=== PATIENT | female | born 1975 | race Caucasian/White ===

== ENCOUNTER → 2019-12-29 08:20 | Outpatient (BNVA) | payer BC, SELFPAY | PROVIDERS: Family Provider Family Medicine; PCP Nurse Practitioner; Visit Provider Nurse Practitioner | DX: Z00.00 Encounter for general adult medical examination without abnormal findings (principal); F41.9 Anxiety disorder, unspecified | CPT/HCPCS: 80053; 80061; 84443; 85007; 85027 ==

== ENCOUNTER 2020-04-01 10:35 | Outpatient (CLI) | payer BC, SELFPAY ==
--- NOTE | 2020-04-01 10:45 | MM_ITS ---
WS: [id number] BILATERAL DIGITAL SCREENING MAMMOGRAPHY WITH CAD CLINICAL INFORMATION: SCREENING HISTORY: Screening mammogram. Bilateral breast soreness. COMPARISON: November 26, 2013 TECHNIQUE: Bilateral CC and MLO views. FINDINGS: The breasts are composed of heterogeneous fibroglandular density tissue, which can limit the detectio n of small underlying mass lesions. Nodular heterogeneous breast tissue unchanged. No suspicious mass , asymmetry, calcifications, or architectural distortion. No evidence of malignancy. MM/[place] [id number] IMPRESSION: BI-RADS: 2-Benign FOLLOW UP: 1 Year Follow-up Recommend return to annual screening mammography.
== END 2020-04-01 10:36 | disposition home or self-care (01) ==
LOC: RADSHAW 10:41
PROVIDERS: PCP Nurse Practitioner; Visit Provider Nurse Practitioner
DX: Z12.31 Encounter for screening mammogram for malignant neoplasm of breast (principal)
CPT/HCPCS: 77067

== ENCOUNTER → 2020-06-03 08:33 | Outpatient (BNVA) | payer BC, SELFPAY | PROVIDERS: PCP Family Medicine; Visit Provider Family Medicine | DX: E78.00 Pure hypercholesterolemia, unspecified (principal) | CPT/HCPCS: 80053; 80061 ==

== ENCOUNTER → 2020-10-25 15:45 | Outpatient (BNVA) | payer BC, SELFPAY | PROVIDERS: PCP Family Medicine; Visit Provider Family Medicine | DX: M54.5 Low back pain (principal); G89.29 Other chronic pain; M79.641 Pain in right hand; M79.642 Pain in left hand | CPT/HCPCS: 80053; 85025; 85651; 86038; 86140; 86431 ==

== ENCOUNTER 2021-02-08 08:07 | Outpatient (CLI) | payer BC, SELFPAY ==
--- NOTE | 2021-02-08 | XR_ITS ---
WS: [id number] LATERAL LUMBAR SPINE: 3 view. Lateral radiographs are performed in upright neutral, flexion and extension to the patient's toleranc e. HISTORY: LUMBAR SPINE PAIN COMPARISON: 09/16/2018 Very slight increase in lumbar lordosis. No fracture or malalignment. With flexion and extension ther e is no instability. XR/XR lumbar spine f/e only [id number] IMPRESSION: No lumbar spine instability.
--- NOTE | 2021-02-08 08:24 | XR_ITS ---
WS: [id number] LATERAL CERVICAL SPINE: 3 view. Lateral radiographs are performed in upright neutral, flexion and extension to the patient's toleranc e. HISTORY: PAIN COMPARISON: 09/14/2014 Mild straightening of the normal cervical lordosis. Less than 2 mm anterolisthesis of C3 and C4. Mild spondylitic changes at C5-6. No fractures. With flexion and extension the alignment remains normal. 2 mm anterolisthesis of C3 and C4 during flexion and returns to normal alignment during extension. XR/XR cervical spine fl/ex [id number] IMPRESSION: 1. Very minimal anterolisthesis of C3 and C4. No significant instability. 2. Mild spondylitic changes at C5-6.
--- NOTE | 2021-02-08 08:24 | MR_ITS ---
WS: [id number] MRI CERVICAL SPINE NONCONTRAST HISTORY: CERVICAL SPINE PAIN COMPARISON: 05/28/2012 Technique: Multiplanar, multisequence noncontrast imaging of the cervical spine. Mild straightening of the normal cervical lordosis. No retrolisthesis or anterolisthesis. Signal within the cervical cord is normal. Visualized posterior fossa is unremarkable. Craniocervical junction, C1 and C2 relationship, odontoid process and soft tissues are normal. C2-C3: Normal. C3-C4: Very mild annular disc bulging. C4-C5: Very mild annular disc bulging and small osteophytes without stenosis. C5-C6: Mild annular disc bulging with a central disc protrusion. Disc protrusion contacts but does no t displace the ventral cervical cord. This is probably a disc osteophyte with minimal progression sin ce the prior study. Disc osteophyte contacts and extends into the foramen bilaterally. Mild central a nd bilateral foraminal stenosis. C6-C7: Very mild annular disc bulging with a LEFT paracentral disc osteophyte with contact on the magaly tral thecal sac. No significant stenosis. There is mild increase in size of the disc osteophyte compl ex since the prior study. Mild central and foraminal stenosis. C7-T1: Normal. 5 mm RIGHT thyroid nodule. MR/MR cervical spin wo con* [id number] IMPRESSION: 1. Mild central and bilateral foraminal stenosis at C5-6 with mild progression since 2011. 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 2. Moderate LEFT paracentral disc osteophyte at C6-7 with mild bilateral nisha inal disc osteophyte complexes resulting in only mild central and foraminal karen rowing. Minimal progression of disc osteophyte disease.
--- NOTE | 2021-02-08 08:24 | MR_ITS ---
WS: [id number] MRI LUMBAR SPINE NONCONTRAST HISTORY: LUMBAR BACK PAIN COMPARISON: 09/16/2018 TECHNIQUE: Sagittal and axial multisequence imaging is submitted. Small disc protrusion at T7-8 without cord contact. Disc appears to be slightly to the LEFT of midlin e. Normal lumbar alignment with no compression fractures or marrow edema. No fractures or marrow edema. Very mild disc desiccation at L5-S1 without disc narrowing. Conus terminates normally at L1-2 disc level. L1-L2: Normal. L2-L3: Normal. L3-L4: Normal. L4-L5: Mild annular disc bulging with facet arthritis. L5-S1: Mild central disc protrusion with annular fissure is similar to the prior study. There is mild contact upon the S1 nerve roots bilaterally but no displacement or progression since the prior study . MR/MR lumbar spine wo con* [id number] IMPRESSION: 1. Shallow central disc protrusion with annular fissure at L5-S1. Very minimal contact without displacement on the S1 nerve roots bilaterally. Similar to the prior study. 2. Minimal disc desiccation at L5-S1, unchanged. 3. No fractures or significant stenosis.
== END 2021-02-08 08:08 | disposition home or self-care (01) ==
PROVIDERS: PCP Family Medicine; Visit Provider Anesthesiology Pain Medicine
DX: M47.22 Other spondylosis with radiculopathy, cervical region (principal); M47.26 Other spondylosis with radiculopathy, lumbar region; M51.27 Other intervertebral disc displacement, lumbosacral region; M48.02 Spinal stenosis, cervical region; M25.78 Osteophyte, vertebrae
CPT/HCPCS: 72040; 72120; 72141; 72148

== ENCOUNTER → 2021-04-26 08:07 | Outpatient (BNVA) | payer BC, SELFPAY | PROVIDERS: PCP Family Medicine; Referring Provider Family Medicine; Visit Provider Family Medicine | DX: E78.00 Pure hypercholesterolemia, unspecified (principal); Z13.6 Encounter for screening for cardiovascular disorders | CPT/HCPCS: 80053; 80061; 84443; 85007; 85027 ==

== ENCOUNTER → 2021-11-13 16:01 | Outpatient (BNVA) | payer BC, SELFPAY | PROVIDERS: PCP Family Medicine; Visit Provider Family Medicine | DX: E78.00 Pure hypercholesterolemia, unspecified (principal) | CPT/HCPCS: 80053 ==

== ENCOUNTER 2021-11-15 14:26 | Outpatient (CLI) | payer BC, SELFPAY ==
--- NOTE | 2021-11-15 15:00 | MM_ITS ---
WS: [id number] BILATERAL DIGITAL SCREENING MAMMOGRAPHY WITH CAD CLINICAL INFORMATION: screening mammogram HISTORY: Screening mammogram. No current complaints. COMPARISON: April 01, 2020 TECHNIQUE: Bilateral CC and MLO views. FINDINGS: The breasts are composed of heterogeneous fibroglandular density tissue, which can limit the detectio n of small underlying mass lesions. Punctate calcifications upper quadrant left breast similar in deena earance but appear increased in number compared to April 01, 2020. Recommend spot magnification views in further evaluation. Right breast is unremarkable and unchanged. MM/[place] [id number] IMPRESSION: BI-RADS: 0-Incomplete: Need additional imaging evaluation FOLLOW UP: Need Additional Imaging Recommend LEFT breast diagnostic mammography with spot magnification views of t he calcifications.
== END 2021-11-15 14:27 | disposition home or self-care (01) ==
LOC: RADSHAW 14:31
PROVIDERS: PCP Family Medicine; Visit Provider Family Medicine
DX: Z12.31 Encounter for screening mammogram for malignant neoplasm of breast (principal)
CPT/HCPCS: 77067

== ENCOUNTER 2022-01-02 07:55 | Outpatient (CLI) | payer BC, SELFPAY ==
--- NOTE | 2022-01-02 08:08 | MM_ITS ---
WS: [id number] LEFT 3D TOMOSYNTHESIS DIGITAL MAMMOGRAPHY WITH CAD CLINICAL INFORMATION: Abnormal mammogram Spot identification views of calcifications COMPARISON: November 15, 2021 TECHNIQUE: 5 views of the left breast were obtained. FINDINGS: The left breast is composed of heterogeneous fibroglandular density tissue, which can limit the detec tion of small underlying mass lesions. Again seen are the punctate calcifications upper quadrant LEFT breast these are amorphous and punctate appearance. These are probably benign and recommend 6 month follow-up spot magnification views. MM/[place] [id number] IMPRESSION: BI-RADS: 3-Probably Benign FOLLOW UP: 6 Month Follow-up Recommend 6 month follow-up Spot magnification views LEFT breast calcifications
== END 2022-01-02 07:56 | disposition home or self-care (01) ==
PROVIDERS: PCP Family Medicine; Visit Provider Family Medicine
DX: R92.8 Other abnormal and inconclusive findings on diagnostic imaging of breast (principal); R92.1 Mammographic calcification found on diagnostic imaging of breast
CPT/HCPCS: 77061

== ENCOUNTER → 2022-05-18 10:38 | Outpatient (BNVA) | payer BC, SELFPAY | PROVIDERS: PCP Family Medicine; Visit Provider Family Medicine | DX: E78.00 Pure hypercholesterolemia, unspecified (principal) | CPT/HCPCS: 80053; 80061; 85025 ==

== ENCOUNTER → 2022-06-21 15:54 | Outpatient (BNVA) | payer BC, SELFPAY | PROVIDERS: PCP Family Medicine; Visit Provider Family Medicine | DX: R60.0 Localized edema (principal); R73.9 Hyperglycemia, unspecified | CPT/HCPCS: 80048; 83036 ==

== ENCOUNTER 2023-01-01 13:05 | Outpatient (CLI) | payer BC, SELFPAY ==
--- NOTE | 2023-01-01 13:16 | MM_ITS ---
WS: [id number] BILATERAL 3D TOMOSYNTHESIS DIGITAL DIAGNOSTIC MAMMOGRAPHY WITH CAD CLINICAL INFORMATION: abnormal mammo HISTORY: COMPARISON: 2021 TECHNIQUE: Bilateral CC, MLO, and ML views. FINDINGS: The breasts are composed of heterogeneous fibroglandular density, which can limit the detection of sm all underlying mass lesions. Again seen are the punctate and amorphous calcifications upper quadrant LEFT breast similar to previous. No progressed calcifications. No other suspicious findings. Parenchymal density is unchanged. MM/[place] [id number] IMPRESSION: BI-RADS: 3-Probably Benign FOLLOW UP: 6 Month Follow-up Recommend additional six-month follow-up LEFT breast diagnostic mammography wit h spot magnification views of the calcifications to confirm 18-24 month stabili ty
== END 2023-01-01 13:06 | disposition home or self-care (01) ==
PROVIDERS: PCP Family Medicine; Visit Provider Family Medicine
DX: R92.8 Other abnormal and inconclusive findings on diagnostic imaging of breast (principal)
CPT/HCPCS: 77062; G0279

== ENCOUNTER 2023-01-03 12:11 | Outpatient (CLI) | payer BC, SELFPAY ==
--- NOTE | 2023-01-03 12:23 | XR_ITS ---
WS: [id number] XR hand RT min 3V* [id number] REASON FOR EXAM: right thumb pain FINDINGS: The joint spaces of the right hand are intact and well preserved. No fracture, periosteal reaction, or erosion is identified. No soft tissue abnormality is seen. XR/XR hand RT min 3V* [id number] IMPRESSION: No significant bone or joint abnormality.
== END 2023-01-03 12:12 | disposition home or self-care (01) ==
LOC: RAD 12:14
PROVIDERS: PCP Family Medicine; Visit Provider Family Medicine
DX: M79.644 Pain in right finger(s) (principal)
CPT/HCPCS: 73130

== ENCOUNTER → 2023-02-04 15:06 | Outpatient (BNVA) | payer BC, SELFPAY | PROVIDERS: PCP Family Medicine; Referring Provider Family Medicine; Visit Provider Specialist | DX: M18.11 Unilateral primary osteoarthritis of first carpometacarpal joint, right hand (principal) | CPT/HCPCS: 73130 ==

== ENCOUNTER 2023-02-04 16:30 | Outpatient (CLI) | payer BC, SELFPAY | END 2023-02-04 16:31 | disposition home or self-care (01) | LOC: SPT 16:30 | PROVIDERS: PCP Family Medicine; Visit Provider Specialist | DX: Z46.89 Encounter for fitting and adjustment of other specified devices (principal); M79.641 Pain in right hand | CPT/HCPCS: 97760; L3924 ==

== ENCOUNTER 2023-02-15 06:00 | Outpatient (RCR) | payer BC, SELFPAY | END 2023-02-17 23:59 | disposition home or self-care (01) | LOC: SOT 06:00 | PROVIDERS: Visit Provider Specialist | DX: M18.11 Unilateral primary osteoarthritis of first carpometacarpal joint, right hand (principal) | CPT/HCPCS: 97165 ==

== ENCOUNTER 2023-02-18 06:00 | Outpatient (RCR) | payer BC, SELFPAY | END 2023-03-20 23:59 | disposition home or self-care (01) | LOC: SOT 06:00 | PROVIDERS: Visit Provider Specialist | DX: M18.11 Unilateral primary osteoarthritis of first carpometacarpal joint, right hand (principal) | CPT/HCPCS: 97018; 97110; 97140 ==

== ENCOUNTER → 2023-05-06 12:19 | Outpatient (BNVA) | payer BC, SELFPAY | PROVIDERS: PCP Family Medicine; Visit Provider Obstetrics & Gynecology | DX: N93.9 Abnormal uterine and vaginal bleeding, unspecified (principal); R93.89 Abnormal findings on diagnostic imaging of other specified body structures; N84.0 Polyp of corpus uteri | CPT/HCPCS: 76830 ==

== ENCOUNTER 2023-06-13 07:16 | Day surgery (SDC) | payer BC, SELFPAY ==
[2023-06-12 12:55] VITALS: BMI 26.4
[2023-06-13] VITALS (17 sets, daily range): BP systolic 121–159; BP diastolic 64–86; PULSE 72–102; RESP 15–117; TEMP 36.6–36.9; O2SAT 95–100
--- NOTE | 2023-06-13 00:49 | W.PM.OPSFHP ---
Same Day Surgery H&P Indication for Procedure/HPI DATE OF PROCEDURE: June 13, 2023 CHIEF COMPLAINT/INDICATIONFOR SURGICAL PROCEDURE: abnormal uterine bleeding PREOP DIAGNOSIS: abnormal uterine bleeding PLANNED PROCEDURE: Operation Date: 06/13/23 08:50 Proposed Procedures p Hysterosocpy, endometrial sampling, possible endometrial polypectomy with Myosure 69396, Pap 39562, N93.9,Z12.4(Not Applicable) - Fabian Ledezma MD s Poylpectomy(Not Applicable) - Fabian Ledezma MD 47 y.o. h/o BTL 1997 in [place] has noted starting last year with extra period every 1-2 months bleeding for 5-10 days between periods along with severe cramps last Pap 4 years ago now scheduled for hysteroscopy, endometrial sampling, possible endometrial polypectomy. Plan also to do pap at the time of procedure. Medications/Allergies* Home Medications Medication Instructions Recorded Confirmed Type atorvastatin 20 mg tablet 20 mg PO BEDTIME 06/12/23 06/12/23 History fluticasone propionate 50 2 spray intranasal DAILY PRN 06/12/23 06/12/23 History mcg/actuation nasal allergies spray,suspension (Flonase Allergy Relief) pantoprazole 40 mg tablet,delayed 40 mg PO BEDTIME 06/12/23 06/12/23 History release (Protonix) trazodone 150 mg tablet 150 mg PO BEDTIME 06/12/23 06/12/23 History Allergies/Adverse Reactions Allergy/AdvReac Type Severity Reaction Status Date / Time No Known Allergies Allergy Verified 06/12/23 12:52 Pertinent History/Comorbid Conditions* Medical History (Updated 04/21/23 @ 16:17 by Fabian Ledezma MD) Chronic bilateral low back pain without sciatica History of COVID-19 2021 Hypercholesterolemia Hypertension Tachycardia Surgical History (Updated 12/24/19 @ 11:20 by AMADOU Mtz) History of tubal ligation Family History (Updated 12/21/19 @ 11:55 by Lacy Lew LPN) Diabetes Heart disease Cancer Social History Smoking and tobacco status: never smoked Alcohol intake: current Alcohol intake frequency: holidays/special occasions only Substance/Drug Use: current Substance/Drug use frequency: few times a week Pertinent Exam Findings alert, oriented x 3, clear to auscultation bilaterally and regular rate & rhythm Pertinent Data Pelvic sono 05-06-23 uterus 10 x 6 x 5 cm Endometrium 1.4 cm, 2 4-5 mm endometrial polyps Normal ovaries 3 cm anterior fibroid Recommendations Surgery/Procedure today Coding Level of Care Code Acute Code for Chg Fwd Diagnoses Time Spent (min) 20
--- NOTE | 2023-06-13 08:01 | ANES.PREANE2 ---
Pre-Anesthetic Assessment Height/Weight: Height 1.6 m Weight 67.585 kg Temp Pulse Resp BP Pulse Ox O2 Del Method 98.2 F 102 H 16 138/77 97 Room Air 06/13/23 07:47 06/13/23 07:47 06/13/23 07:47 06/13/23 07:47 06/13/23 07:47 06/13/23 07:49 Preop Diagnosis: abnormal uterine bleeding Operation Date: 06/13/23 08:50 Proposed Procedures p Hysterosocpy, endometrial sampling, possible endometrial polypectomy with Myosure 84494, Pap 00333, N93.9,Z12.4(Not Applicable) - Fabian Ledezma MD s Poylpectomy(Not Applicable) - Fabian Ledezma MD Familial anesthetic complications: none Was Beta Kira taken within 24 hours: N/A Was Clonidine taken within 24 hours: N/A Last intake: Intake Last Liquid Date 06/12/23 Last Liquid Time 19:30 Last Solid Date 06/12/23 Last Solid Time 19:30 Social No alcohol and No tobacco Exam alert, oriented x 3, clear to auscultation bilaterally and regular rate & rhythm Airway Submandibular: within normal limits Cervical ROM: within normal limits Mallampati: Class I Dentition: full GI Gastroesophageal Reflux Disease Metabolic Hyperlipidemia Musc/skel Lower Back Pain and Osteoarthritis/DJD Neuropsych Anxiety and Depression Anesthetic Plan ASA status: 2 Anesthesia: General Medications/Allergies Home Medications Medication Instructions Recorded Confirmed Last Taken Type sertraline 100 mg tablet 100 mg PO DAILY 90 days #90 tabs 12/21/22 06/12/23 06/12/23 Rx [facility] Brace #1 ea 02/04/23 05/08/23 Unknown Rx atorvastatin 20 mg tablet 20 mg PO BEDTIME 06/12/23 06/12/23 06/12/23 History fluticasone propionate 50 2 spray intranasal DAILY PRN 06/12/23 06/12/23 Unknown History mcg/actuation nasal allergies spray,suspension (Flonase Allergy Relief) pantoprazole 40 mg tablet,delayed 40 mg PO BEDTIME 06/12/23 06/12/23 06/12/23 History release (Protonix) trazodone 150 mg tablet 150 mg PO BEDTIME 06/12/23 06/12/23 06/11/23 History Allergies Allergy/AdvReac Type Severity Reaction Status Date / Time No Known Allergies Allergy Verified 06/12/23 12:52 [facility] Anesthesia Medical History Chronic bilateral low back pain without sciatica History of COVID-19 2021 Hypercholesterolemia Hypertension Tachycardia Surgical History History of tubal ligation Family History Other Cancer Diabetes Heart disease Social History Smoking and tobacco status: never smoked Alcohol intake: current Alcohol intake frequency: holidays/special occasions only Substance/Drug Use: current Substance/Drug use frequency: few times a week Data Anesthesia Cardiac Studies: No Data to Display
[2023-06-13] MEDS: sodium chloride 0.9% 1,000 ML 30 ML IV (08:10)
[2023-06-13] MEDS: midazolam 1 mg/mL INJ 2 mL 2 MG IVP (08:11)
[2023-06-13 08:21] LABS: OR HCG Qualitative Urine Negative (Negative)
--- NOTE | 2023-06-13 08:57 | W.PM.OPSUD ---
Surgery/Procedure H&P Update DATE OF PROCEDURE: June 13, 2023 DATE H&P PERFORMED: 06/13/23 H&P UPDATE INFORMATION: I have reviewed H&P completed within last 30 days, I have examined patient prior to procedure and No changes to prior documentation PREOP DIAGNOSIS: abnormal uterine bleeding PLANNED PROCEDURE: Operation Date: 06/13/23 08:50 Proposed Procedures p Hysterosocpy, endometrial sampling, possible endometrial polypectomy with Myosure 76889, Pap 72081, N93.9,Z12.4(Not Applicable) - Fabian Ledezma MD s Poylpectomy(Not Applicable) - Fabian Ledezma MD
[2023-06-13] MEDS: meperidine 50 mg/mL INJ 12.5 MG IVP (10:31)
[2023-06-13] MEDS: fentaNYL 50 mcg/mL INJ 2mL IVP (10:48)
[2023-06-13] MEDS: ondansetron 2 mg/ML SDV 2 mL 4 MG IVP (11:50)
[2023-06-13] MEDS: ketorolac 30 mg/mL INJ 15 MG IVP (12:21)
--- NOTE | 2023-06-13 12:26 | SUR.PHASEII ---
12:25 MEDICATED FOR NAUSEA AND CRAMPING PAIN.
--- NOTE | 2023-06-13 16:17 | ANE.PACU2 ---
Inpatient post-anesthesia follow up: Airway intact: Yes Vital signs: Temperature 98.0 F Pulse Rate 72 Respiratory Rate 16 Blood Pressure 132/78 Pulse Oximetry 98 Oxygen Delivery Me thod Room Air Oxygen Flow Rate 6 Fraction of Inspir ed Oxygen Hydration adequate: Yes Nausea and vomiting: No Pain level: 2 Mental status: Baseline
--- NOTE | 2023-06-13 18:55 | P.OP_ITS ---
Operative Report Date of procedure: June 13, 2023 Pre-op diagnosis: Preop Diagnosis abnormal uterine bleeding Post-op diagnosis: same Post-op findings: normal endometrial cavity Small amount of endometrial tissue No polyps or fibroids Procedure done: hysteroscopy Curettage of uterus Specimens removed/disposition: endometrial tissue Surgeon: Fabian Ledezma MD Anesthesia: General Estimated blood loss (mL): 5 Complications: none Condition: stable Disposition: PACU Brief History: 47 y.o. h/o BTL 1997 in [place] has noted starting last year with extra period every 1-2 months bleeding for 5-10 days between periods along with severe cramps Procedure: Informed consent signed. Patient was taken to the operating room.? Anesthesia induced.? Patient was placed in dorsolithotomy position? Pap was done.? Patient was then prepped and draped for hysteroscopy.? A bivalve speculum was placed in the vagina.? The anterior lip of the cervix was grasped with a sharp-toothed tenaculum.? The cervix was serially dilated with Hegar dilators.? .? A hysteroscope was placed into the endometrial cavity.? The endometrial cavity was seen to be normal.? There were no polyps or fibroids.? There was moderate endometrial tissue.? The hysteroscope was then removed.? Endometrial curettage was done with a sharp cur ette.? Endometrial tissue was sent to pathology.?? The sharp-toothed tenaculum was removed.? There was no bleeding from the endometrial cavity or cervix.? The patient was then placed supine and awakened and taken to the PACU. Postop condition:? stable EBL:? none Sponge and instruments counts were normal x 2 Complications:? none
== END 2023-06-13 13:10 | disposition home or self-care (01) ==
PROVIDERS: Anesthesiology; PCP Family Medicine; Visit Provider Obstetrics & Gynecology
PROC: 0UDB8ZZ Extraction of Endometrium, Via Natural or Artificial Opening Endoscopic (ICD-10-PCS; CPT 58558; principal; 2023-06-13 08:50)
PROC: (CPT 58558; 2023-06-13 08:50)
DX: N93.9 Abnormal uterine and vaginal bleeding, unspecified (principal); K21.9 Gastro-esophageal reflux disease without esophagitis; E78.5 Hyperlipidemia, unspecified; I10 Essential (primary) hypertension; Z86.16 Personal history of COVID-19
CPT/HCPCS: 58558; 81025; 84703; 88305; J1100; J1200; J1885; J2175; J2250; J2405; J2704; J3010; J7030

== ENCOUNTER 2023-06-17 13:17 | Emergency (ER) | payer BC, SELFPAY ==
[2023-06-17 14:50] VITALS: BMI 26.4
[2023-06-17 15:48] LABS: Basophils % 0.3 %; Eosinophils # 0.1 10^3/uL (0.0-0.8); Eosinophils % 1.8 %; Hematocrit 36.3 % (36-47); Lymphocytes # 1.4 10^3/uL (0.8-4.8); Lymphocytes % 21.8 %; Mean Corpuscular HGB Conc 32.2 g/dL (30-55); Mean Corpuscular Hemoglobin 26.7 pg (27-33); Mean Corpuscular Volume 82.9 fl (85-98); Monocytes # 0.6 10^3/uL (0.2-0.9); Monocytes % 8.4 %; Neutrophils # 4.43 10^3/uL (1.8-7.7); Neutrophils % 67.5 %; Nucleated Red Blood Cells % 0 %; Platelet Count 324 10^3/cmm (157-399); Red Blood Count 4.38 10^6/uL (3.85-5.65); Red Cell Distribution Width 13.8 % (12.1-15.1); White Blood Count 6.56 10^3/uL (3.29-11.43)
[2023-06-17 16:03] LABS: HCG, Serum Qual Negative (Negative)
--- NOTE | 2023-06-17 16:05 | W.ED.FEMALGU ---
HPI - Female Genitourinary General: Chief complaint: Vaginal Bleeding Stated complaint: abd pain, previous surgery on Time Seen by Provider: 06/17/23 15:28 Source: patient Mode of arrival: ambulatory History of Present Illness: 47-year-old female presents emergency room with complaints of continued vaginal bleeding and cramping. She had a D&C was told it was going to be light she still having some she felt it is unusually heavy. She not had lightheadedness dizziness. No syncopal episodes. MD elicited complaint: vaginal bleeding and pelvic pain Pertinent past history: other (Recent D&C) Onset (ago): day(s) Severity: moderate Quality of pain: cramping Vaginal bleeding: moderate Exacerbating factors: none Relieving factors: none Associated symptoms: Deny abdominal pain, short of breath, fevers/chills, headache(s), nausea, rash, seizures, syncope, vaginal bleeding, vaginal discharge or weakness Date of Last Menstrual Period: 05/27/23 Review of Systems Const: Denies: fever(s), chills, body aches, change in appetite, fatigue or malaise ENMT: Denies: throat pain, ear or mastoid pain, nasal discharge or nasal congestion Card: Denies: chest pain, palpitations, edema or syncope Resp: Denies: dyspnea, productive cough or non-productive cough GI: Denies: abdominal pain, nausea or vomiting : Reports: vaginal bleeding; Denies: dysuria, urinary frequency, urinary urgency or vaginal discharge Skin/Breast: Denies: rash or pruritus Neuro: Denies: headache(s) PFS ED PFSH: Medical History Chronic bilateral low back pain without sciatica History of COVID-19 2021 Hypercholesterolemia Hypertension Tachycardia Surgical History History of tubal ligation Family History Other Cancer Diabetes Heart disease Social History Smoking and tobacco status: never smoked Alcohol intake: current Alcohol intake frequency: holidays/special occasions only Substance/Drug Use: current Substance/Drug use frequency: few times a week Female Reproductive History: Date of last menstrual period: 05/27/23 Physical Exam Const: COMMON NORMALS: no acute distress GENERAL APPEARANCE: cooperative and comfortable ORIENTATION/CONSCIOUSNESS: Yes awake, Yes oriented to person, Yes oriented to place and Yes oriented to time HENMT: COMMON NORMALS: normocephalic, atraumatic and hearing grossly normal bilaterally HEAD & SCALP: normocephalic and atraumatic Resp: COMMON NORMALS: normal respiratory effort, No retractions, No use of accessory muscles and clear to auscultation bilaterally AUSCULTATION: clear to auscultation bilaterally Cardio: COMMON NORMALS: regular rate, regular rhythm and No murmurs present (Cardio) RATE: regular rate RHYTHM: regular rhythm GI: COMMON NORMALS: Soft to palpation and No hepatosplenomegaly present AUSCULTATION: Yes normoactive bowel sounds PALPATION: Yes Soft to palpation, No Tenderness to palpation present (GI), No Guarding due to palpation present (GI) and Yes No hepatosplenomegaly present : SPECULUM EXAM - VAGINA: No vaginal bleeding OB/EXTERNAL & SPECULUM: No vaginal bleeding Extremity: COMMON NORMALS: normal to inspection, capillary refill normal, no clubbing, cyanosis or edema, no calf tenderness and no pedal edema Neuro: SENSORIUM/ORIENTATION: Yes oriented to person, Yes oriented to place and Yes oriented to time Skin: COMMON NORMALS: no rashes or lesions noted GENERAL SKIN EXAM: no rashes or lesions noted [facility] - Female Medical Decision Making CT shows some fluid in uterus no signs of perforation no sign of significant abnormality. 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 Lab Data I reviewed the patient's lab results. 06/17/23 15:42 06/17/23 15:42 Radiology Impressions Abdomen/Pelvis CT 06/17/23 16:10 IMPRESSION: 1. Fluid in the uterine cavity may be related to menstrual status. 2. Prominent fluid in the small bowel without dilation may reflect an enteritis. 3. Urinary bladder wall thickening likely due to nondistention, please correlate for cystoscopy. 4. 16 mm cervical nabothian cyst suspected. Laboratory Results WBC 6.56 10^3/uL (3.29-11.43) 06/17/23 15:42 RBC 4.38 10^6/uL (3.85-5.65) 06/17/23 15:42 Hgb 11.70 g/dL (11.27-16.99) 06/17/23 15:42 Hct 36.3 % (36-47) 06/17/23 15:42 MCV 82.9 fl (85-98) L 06/17/23 15:42 MCH 26.7 pg (27-33) L 06/17/23 15:42 MCHC 32.2 g/dL (30-55) 06/17/23 15:42 RDW 13.8 % (12.1-15.1) 06/17/23 15:42 Plt Count 324 10^3/cmm (157-399) 06/17/23 15:42 MPV 11.0 fL (7.4-10.4) H 06/17/23 15:42 Neut % (Auto) 67.5 % 06/17/23 15:42 Lymph % (Auto) 21.8 % 06/17/23 15:42 [place] % (Auto) 8.4 % 06/17/23 15:42 Eos % (Auto) 1.8 % 06/17/23 15:42 Baso % (Auto) 0.3 % 06/17/23 15:42 Neut # (Auto) 4.43 10^3/uL (1.8-7.7) 06/17/23 15:42 Lymph # (Auto) 1.4 10^3/uL (0.8-4.8) 06/17/23 15:42 [place] # (Auto) 0.6 10^3/uL (0.2-0.9) 06/17/23 15:42 Eos # (Auto) 0.1 10^3/uL (0.0-0.8) 06/17/23 15:42 Baso # (Auto) 0.0 10^3/uL (0.0-0.1) 06/17/23 15:42 Nucleated RBC % (auto) 0 % 06/17/23 15:42 Nucleated RBCs # 0.0 /100WBC 06/17/23 15:42 Sodium 139 mmol/L (136-145) 06/17/23 15:42 Potassium 4.2 mmol/L (3.5-5.1) 06/17/23 15:42 Chloride 102 mmol/L (98-107) 06/17/23 15:42 Carbon Dioxide 29 mmol/L (22-29) 06/17/23 15:42 Anion Gap 12.2 (5-19) 06/17/23 15:42 BUN 12 mg/dL (6-20) 06/17/23 15:42 Creatinine 0.7 mg/dL (0.5-0.9) 06/17/23 15:42 GFR Calculation 90.5 mL/min (90-130) 06/17/23 15:42 Glucose 96 mg/dL (65-115) 06/17/23 15:42 Calculated Osmolality 288 mOsm/kg (285-295) 06/17/23 15:42 Calcium 9.1 mg/dL (8.5-10.5) 06/17/23 15:42 Total Bilirubin 0.2 mg/dL (0.15-1.2) 06/17/23 15:42 AST 16 U/L (0-32) 06/17/23 15:42 ALT 16 U/L (0-33) 06/17/23 15:42 Alkaline Phosphatase 68 U/L (35-105) 06/17/23 15:42 Total Protein 7.5 g/dL (6.6-8.7) 06/17/23 15:42 Albumin 4.7 g/dL (3.5-5.2) 06/17/23 15:42 Globulin 2.8 g/dL (1.3-4.6) 06/17/23 15:42 HCG, Qual Negative (Negative) 06/17/23 15:42 Urine Color Colorless (Yellow) 06/17/23 17:11 Urine Appearance Clear (CLEAR) 06/17/23 17:11 Urine pH 8 (5-7) H 06/17/23 17:11 Ur Specific [place] 1.005 (1.005-1.030) 06/17/23 17:11 Urine Protein Neg (Negative) 06/17/23 17:11 Urine Glucose (UA) Norm (Normal) 06/17/23 17:11 Urine Ketones Negative (Negative) 06/17/23 17:11 Urine Blood 2+ (Negative) H 06/17/23 17:11 Urine Nitrate Negative (Negative) 06/17/23 17:11 Urine Bilirubin Neg (Negative) 06/17/23 17:11 Prot Sulfosalicylic Acd Negative (Negative) 06/17/23 17:11 Urine Urobilinogen Norm mg/dL (Negative) 06/17/23 17:11 Ur Leukocyte Esterase 1+ (Negative) H 06/17/23 17:11 Urine RBC 0-4 /hpf (0-2) H 06/17/23 17:11 Urine WBC 5-10 /hpf (0-5) H 06/17/23 17:11 Ur Squamous Epith Cells None /hpf (0-5) 06/17/23 17:11 Amorphous Sediment Not Reportable 06/17/23 17:11 Urine Bacteria Trace /hpf (NONE) 06/17/23 17:11 Discharge Plan Discharge Patient Disposition: Home Clinical Impression: Cystitis, Vaginal bleeding Condition: Stable Prescriptions: New Bactrim DS 800-160 mg tablet 1 tab PO Q12H Qty: 14 0RF No Action (DME) [facility] Brace See Rx Instructions .Route .MEDSUPPLY Qty: 1 0RF Rx Instructions: As directed sertraline 50 mg tablet 50 mg PO DAILY 90 Days Qty: 90 0RF trazodone 150 mg tablet 150 mg PO BEDTIME Qty: 90 1RF pantoprazole [Protonix] 40 mg tablet,delayed release (DR/EC) 40 mg PO BEDTIME Qty: 90 1RF atorvastatin 20 mg tablet 20 mg PO BEDTIME Qty: 90 1RF Flonase Allergy Relief 50 mcg/actuation spray,suspension 2 spray intranasal DAILY PRN (Reason: allergies) Rx Instructions: administer into each nostril Discharge Orders: Discharge ED (Routine); Ordered 06/17/23 Ordered By: Dennys Schilling Referrals: Alexandra Norris DO [Primary Care Provider] - Discharge Diet: Usual diet Discharge Activity: Resume usual activity Patient Instructions: Opioid Safety, Pain Management Activity Restrictions/Additional Instructions: You are seen today for persistent vaginal bleeding. You were also found to have a bladder infection and given a prescription for oral antibiotics. 1 pill twice daily for 7 days. Coding Level of Care Code ED Clinical Statistical Programmer for Harleen Barkley
--- NOTE | 2023-06-17 16:10 | CTR_ITS ---
PROCEDURE INFORMATION: Exam: CT Abdomen And Pelvis With Contrast Exam date and time: 06/17/2023 4:17 PM Age: 47 years old Clinical indication: Abdominal pain; Generalized; Prior surgery; Surgery date: 3-7 days post-operative; Surgery type: Hysteroscopy with d & c; Additional info: Abd pain/post op hysteroscopy TECHNIQUE: Imaging protocol: Computed tomography of the abdomen and pelvis with contrast. Radiation optimization: All CT scans at this facility use at least one of these dose optimization techniques: automated exposure control; mA and/or kV adjustment per patient size (includes targeted exams where dose is matched to clinical indication); or iterative reconstruction. Contrast material: OMNI 350; Contrast volume: 100 ml; Contrast route: INTRAVENOUS (IV); REPORTING DATA: Count of CT and Cardiac NM exams in prior 12 months: This patient has received 0 known CTs and 0 known cardiac nuclear medicine studies in the 12 months prior to the current study. COMPARISON: US transvaginal [id number] 05/06/2023 12:22 PM RADIATION DOSE METRICS: Total DLP (mGy-cm): 513.8 FINDINGS: Liver: Normal. No mass. Gallbladder and bile ducts: Normal. No calcified stones. No ductal dilation. Pancreas: Normal. No ductal dilation. Spleen: Normal. No splenomegaly. Adrenal glands: Normal. No mass. Kidneys and ureters: Normal. No hydronephrosis. Stomach and bowel: Prominent fluid in the small bowel without dilation may reflect an enteritis. Appendix: No evidence of appendicitis. Intraperitoneal space: Unremarkable. No free air. No significant fluid collection. Vasculature: Unremarkable. No abdominal aortic aneurysm. Lymph nodes: Unremarkable. No enlarged lymph nodes. Urinary bladder: Urinary bladder wall thickening likely due to nondistention, please correlate for cystoscopy. Reproductive: Fluid in the uterine cavity may be related to menstrual status. 16 mm cervical nabothian cyst suspected. Bones/joints: Unremarkable. No acute fracture. Soft tissues: Unremarkable. CT/CT abdomen pelvis w con* [id number] IMPRESSION: 1. Fluid in the uterine cavity may be related to menstrual status. 2. Prominent fluid in the small bowel without dilation may reflect an enteritis. 3. Urinary bladder wall thickening likely due to nondistention, please correlate for cystoscopy. 4. 16 mm cervical nabothian cyst suspected.
[2023-06-17] MEDS: iohexol 350 mg/mL 500 mL Btl (per mL) IV (16:19)
[2023-06-17 16:34] LABS: Alanine Aminotransferase 16 U/L (0-33); Albumin Level 4.7 g/dL (3.5-5.2); Alkaline Phosphatase 68 U/L (35-105); Anion Gap 12.2 (5-19); Aspartate Amino Transferase 16 U/L (0-32); Blood Urea Nitrogen 12 mg/dL (6-20); Calcium 9.1 mg/dL (8.5-10.5); Carbon Dioxide 29 mmol/L (22-29); Chloride 102 mmol/L (98-107); Globulin 2.8 g/dL (1.3-4.6); Glomerular Filtration Rate 90.5 mL/min (90-130); Glucose 96 mg/dL (65-115); Osmolality Calculated 288 mOsm/kg (285-295); Potassium 4.2 mmol/L (3.5-5.1); Sodium 139 mmol/L (136-145); Total Bilirubin 0.2 mg/dL (0.15-1.2); Total Protein 7.5 g/dL (6.6-8.7)
[2023-06-17 17:55] LABS: Urine Appearance Clear (CLEAR); Urine Color Colorless (Yellow); pH Urine 8 (5-7)
[2023-06-17 17:56] LABS: Add Urine Culture? Yes; Add Urine Microscopic? YES; Bacteria Urine TRACE /hpf; Bilirubin Urine Neg (Negative); Blood Urine 2+ (Negative); Glucose Urine UA Norm (Normal); Ketones Urine Negative (Negative); Leukocyte Esterase Urine 1+ (Negative); Nitrate Urine Negative (Negative); Protein Urine Neg (Negative); RBC Urine 0-4 /hpf (0-2); Specific Gravity, Urine 1.005 (1.005-1.030); Sulfosalicylic Acid Urine Negative (Negative); Urobilinogen Urine Norm (Negative)
== END 2023-06-17 19:04 | disposition home or self-care (01) ==
PROVIDERS: Physician Assistant; Emergency Provider Family Medicine; PCP Family Medicine
DX: N30.90 Cystitis, unspecified without hematuria (principal); N93.9 Abnormal uterine and vaginal bleeding, unspecified; I10 Essential (primary) hypertension
CPT/HCPCS: 74177; 80053; 81001; 84703; 85025; 87086; 99285; Q9967

== ENCOUNTER → 2023-06-26 07:29 | Outpatient (BNVA) | payer BC, SELFPAY | PROVIDERS: PCP Family Medicine; Visit Provider Family Medicine | DX: E78.00 Pure hypercholesterolemia, unspecified (principal) | CPT/HCPCS: 80061 ==

== ENCOUNTER 2023-12-05 09:42 | Observation (INO) | payer BC, SELFPAY ==
[2023-12-05] VITALS (19 sets, daily range): BP systolic 115–154; BP diastolic 50–80; PULSE 74–103; RESP 14–18; TEMP 36.2–36.7; O2SAT 92–100; BMI 26.5
--- NOTE | 2023-12-05 00:14 | PM.OBGYHP ---
Providers/Chief Complaint Admitting Physician: Fabian Ledezma MD Primary LUMBER INSPECTOR: Fabian Ledezma MD Primary Care Provider: Alexandra Norris DO Chief Complaint: N93.9 HPI LUMBER INSPECTOR History of Present Illness 48 y.o. h/o BTL h/o menorrhagia and dysmenorrhea now scheduled for hysterectomy Medications/Allergies Home Medications Medication Instructions Recorded Confirmed Last Taken Type [facility]MC Brace #1 ea 02/04/23 10/28/23 Unknown Rx pantoprazole 40 mg tablet,delayed 40 mg PO BEDTIME #90 tabs 06/21/23 12/04/23 Unknown Rx release (Protonix) trazodone 150 mg tablet 150 mg PO BEDTIME #90 tabs 06/21/23 12/04/23 12/03/23 Rx atorvastatin 40 mg tablet 40 mg PO BEDTIME #90 tabs 06/27/23 12/04/23 12/03/23 Rx sertraline 50 mg tablet 50 mg PO DAILY 12/04/23 12/04/23 12/03/23 History Allergies Allergy/AdvReac Type Severity Reaction Status Date / Time No Known Allergies Allergy Verified 10/28/23 15:16 PFSH LUMBER INSPECTOR PFSH: Medical History History of COVID-19 2021 Chronic bilateral low back pain without sciatica Hypercholesterolemia Hypertension Tachycardia Surgical History History of tubal ligation Family History Other Cancer Diabetes Heart disease Social History Smoking and tobacco/nicotine status: never used tobacco/nicotine Alcohol intake: current Alcohol intake frequency: holidays/special occasions only Substance/Drug Use: current Substance/Drug use frequency: few times a week History History History 3 Term 3 0 Miscarriages/Ectopic 0 Living Children 3 Physical Exam Const: COMMON NORMALS: no acute distress, average body habitus, patient oriented x3, healthy appearing and alert Resp: COMMON NORMALS: normal respiratory effort, No retractions, No use of accessory muscles and clear to auscultation bilaterally Cardio: COMMON NORMALS: regular rate and regular rhythm GI: COMMON NORMALS: Normal to inspection, nondistended, normoactive bowel sounds present, Soft to palpation and non-tender Results Labs OB ([facility]): Hct 36.3 % (36-47) 06/17/23 Hgb 11.70 g/dL (11.27-16.99) 06/17/23 Plt Count 324 10^3/cmm (157-399) 06/17/23 TSH 1.41 uIU/mL (0.27-4.20) 04/26/21 Hemoglobin A1c 6.0 % (4.0-6.0) 06/21/22 HCG, Qual Negative (Negative) 06/17/23 Micro Urine Specimen 06/17/23 A&P Assessment and plan (1) Menorrhagia: Patient wants hysterectomy Does not want any other treatment options plan laparoscopic-assisted vaginal hysterectomy, possible open hysterectomy procedure and risks explained to patient, including, but not limited to, risks of infection; bleeding; injury to internal organs, such as bladder, bowel, blood vessels; anesthesia; blood transfusions patient understands and wants to proceed (2) Dysmenorrhea: Attestations Medical Necessity Statement*: patient with h/o menorrhagia and dysmenorrhea, now scheduled for hysterectomy Coding Level of Care Code Acute Code for g Fwd Diagnoses Menorrhagia N92.0 Dysmenorrhea N94.6 Time Spent (min) 20
[2023-12-05 06:01] LABS: OR HCG Qualitative Urine Negative (Negative)
[2023-12-05] MEDS: sodium chloride 0.9% 1,000 ML 30 ML IV (06:18)
[2023-12-05 06:43] LABS: Anion Gap 15.3 (5-19); Blood Urea Nitrogen 15 mg/dL (6-20); Calcium 8.7 mg/dL (8.5-10.5); Carbon Dioxide 23 mmol/L (22-29); Chloride 104 mmol/L (98-107); Glomerular Filtration Rate 90.1 mL/min (90-130); Glucose 118 mg/dL (65-115); Osmolality Calculated 288 mOsm/kg (285-295); Potassium 4.3 mmol/L (3.5-5.1); Sodium 138 mmol/L (136-145)
--- NOTE | 2023-12-05 06:50 | W.PM.OPSUD ---
Surgery/Procedure H&P Update DATE OF PROCEDURE: December 05, 2023 DATE H&P PERFORMED: 12/05/23 H&P UPDATE INFORMATION: I have reviewed H&P completed within last 30 days, I have examined patient prior to procedure and No changes to prior documentation PREOP DIAGNOSIS: menorrhagia, dysmenorrhea PRIMARY INDICATION FOR PROCEDURE: chronic severe menorrhagia and dysmenorrhea PLANNED PROCEDURE: Operation Date: 12/05/23 07:00 Proposed Procedures p Laparoscopic assisted vaginal hysterectomy 23071 N93.9(Not Applicable) - Fabian Ledezma MD
[2023-12-05] MEDS: midazolam 1 mg/mL INJ 2 mL 2 MG IVP (06:53)
[2023-12-05] MEDS: ceFAZolin 2,000 MG in sodium chloride 0.9% (plus) 50 ML 100 MG IV (07:00)
--- NOTE | 2023-12-05 07:53 | P.ANESASSM_ITS ---
Pre-Anesthetic Assessment Height/Weight: Height 1.6 m Weight 68.039 kg Temp Pulse Resp BP Pulse Ox O2 Del Method 97.3 F L 102 H 18 154/68 99 Room Air 12/05/23 06:05 12/05/23 06:05 12/05/23 06:05 12/05/23 06:05 12/05/23 06:05 12/05/23 06:05 Preop Diagnosis: menorrhagia, dysmenorrhea Operation Date: 12/05/23 07:00 Proposed Procedures p Laparoscopic assisted vaginal hysterectomy 55454 N93.9(Not Applicable) - Fabian Ledezma MD Familial anesthetic complications: none Was Beta Kira taken within 24 hours: N/A Was Clonidine taken within 24 hours: N/A Last intake: Intake Last Liquid Date 12/04/23 Last Liquid Time 23:30 Last Solid Date 12/04/23 Last Solid Time 23:30 Social No alcohol and No tobacco Exam alert, oriented x 3, clear to auscultation bilaterally and regular rate & rhythm Airway Submandibular: within normal limits Cervical ROM: within normal limits Mallampati: Class II Dentition: full GI Gastroesophageal Reflux Disease Metabolic Hyperlipidemia Neuropsych Anxiety and Depression Anesthetic Plan ASA status: 2 Anesthesia: General Medications/Allergies Home Medications Medication Instructions Recorded Confirmed Last Taken Type CMC Brace #1 ea 02/04/23 10/28/23 Unknown Rx pantoprazole 40 mg tablet,delayed 40 mg PO BEDTIME #90 tabs 06/21/23 12/04/23 Unknown Rx release (Protonix) trazodone 150 mg tablet 150 mg PO BEDTIME #90 tabs 06/21/23 12/04/23 12/03/23 Rx atorvastatin 40 mg tablet 40 mg PO BEDTIME #90 tabs 06/27/23 12/04/23 12/03/23 Rx sertraline 50 mg tablet 50 mg PO DAILY 12/04/23 12/05/23 12/04/23 History Allergies Allergy/AdvReac Type Severity Reaction Status Date / Time No Known Allergies Allergy Verified 10/28/23 15:16 Current Medications Generic Name Dose Route Start Last Admin Trade Name Freq PRN Reason Stop Dose Admin Sodium Chloride 1,000 mls @ 30 mls/hr 12/05/23 06:00 12/05/23 06:18 Sodium Chloride 0.9% IV 12/06/23 05:59 30 mls/hr .Q24H PAUL Administration Midazolam HCl 2 mg 12/05/23 05:51 12/05/23 06:53 Midazolam 1 Mg/Ml Inj 2 Ml IVP 2 mg ONCE PRN Administration Preop Anxiety PFSH Anesthesia Medical History History of COVID-19 2021 Chronic bilateral low back pain without sciatica Hypercholesterolemia Hypertension Tachycardia Surgical History History of tubal ligation Family History Other Cancer Diabetes Heart disease Social History Smoking and tobacco/nicotine status: never used tobacco/nicotine Alcohol intake: current Alcohol intake frequency: holidays/special occasions only Substance/Drug Use: current Substance/Drug use frequency: few times a week Data Anesthesia 12/05/23 06:10 BMP 12/05/23 06:10 Sodium 138 Potassium 4.3 Chloride 104 Carbon Dioxide 23 BUN 15 Creatinine 0.7 Glucose 118 H Calcium 8.7 Blood Bank 12/05/23 06:10 Blood Type O Negative Rho(D) Type Negative Antibody Screen Negative Cardiac Studies: 2 No Data to Display
[2023-12-05] MEDS: lidocaine-epi 1% 20 mL INJ INJECTION (08:05)
[2023-12-05] MEDS: fentaNYL 50 mcg/mL INJ 2mL 100 MCG IVP (09:10)
[2023-12-05] MEDS: HYDROcodone-acetaminophen 5-325 mg Tablet PO (10:57)
[2023-12-05] MEDS: dextrose 5%-lactated ringers 1,000 ML 125 ML IV ×2 (11:11→19:45)
[2023-12-05] MEDS: ondansetron 2 mg/ML SDV 2 mL 4 MG IVP ×2 (11:11→17:45)
--- NOTE | 2023-12-05 12:05 | P.OP_ITS ---
Operative Report Date of procedure: December 05, 2023 Pre-op diagnosis: menorrhagia, dysmenorrhea Post-op diagnosis: same Procedure done: Laparoscopic-assisted vaginal hysterectomy Implants: none Specimens removed/disposition: uterus Surgeon: Franck Rolle MD [employer] Order Filler: Fabian Ledezma MD Anesthesia: General Estimated blood loss (mL): 25 Complications: none Findings: normal uterus and ovaries Brief History: 48 y.o. with chronic severe menorrhagia and dysmenorrhea Procedure: The patient was taken to the operating room, placed supine on the table. General endotracheal anesthesia was induced. A baker catheter was placed which drained clear urine. The patient was placed in dorsolithotomy position for laparoscopic surgery. The abdomen and perineum were prepped and draped in the usual sterile fashion. A Zumi uterine elevator was placed via the cervix for manipulation of the uterus. An umbilical skin incision was made measuring approximately 1 cm. A Veress needle was inserted. After confirming intraperitoneal entry, a pneumoperitoneum was achieved. The Veress needle was removed. A trocar with sheath was placed. A laparoscope was inserted and used to visualize the pelvic organs. Normal uterus and ovaries were seen. Patient had previous bilateral salpingectomy. One additional skin incision was made measuring 0.5 cm in the suprapubic region. 5 mm trocar with sheath were inserted via this incision under laparoscopic visualization. A Ligasure device and endograsper were placed. The Ligasure device was used to divide the round ligaments on both sides followed by the uteroovarian ligaments. These were successfully coagulated and divided without any bleeding. It was then decided to proceed vaginally to complete the vaginal hysterectomy po rtion of the procedure. The pneumoperitoneum was allowed to escape. The Zumi was removed. A vaginal Bookwalter retractor was placed. The cervicovaginal junction was incised and the anterior and posterior cul-de-sacs were entered without any injury to the underlying organs including the bowel and the bladder. The uterine vessels on both sides were then divided and coagulated without any difficulties. The uterus was removed. No bleeding was seen. The vaginal cuff was then closed using a running suture of O-Vicryl. The pneumoperitoneum was re-instituted and the pelvis was examined using the laparoscope to confirm good hemostasis. Following this, all instruments were removed from the abdomen after the pneumoperitoneum was allowed to escape. The laparoscopic skin incisions were then closed using 4-O skin sutures. The patient was placed supine and taken to the recovery room. Postoperative condition stable EBL: 25 cc Complications: none To PACU in good condition
--- NOTE | 2023-12-05 13:23 | ANE.PACU2 ---
Inpatient post-anesthesia follow up: Airway intact: Yes Vital signs: Temperature 98.1 F Pulse Rate 74 Respiratory Rate 18 Blood Pressure 127/70 Pulse Oximetry 98 Oxygen Delivery Me thod Room Air Oxygen Flow Rate 6 Fraction of Inspir ed Oxygen Hydration adequate: Yes Nausea and vomiting: No Pain level: 2 Mental status: Baseline
[2023-12-05] MEDS: ketorolac 30 mg/mL INJ IVP ×2 (15:16→21:16)
[2023-12-05] MEDS: oxyCODONE-APAP 5-325 mg Tablet PO ×2 (15:16→21:22)
[2023-12-05] MEDS: simethicone 80 mg Chew PO (17:58)
[2023-12-05] MEDS: sertraline 50 mg Tablet PO (19:45)
[2023-12-05] MEDS: atorvastatin 40 mg Tablet PO (21:16)
[2023-12-05] MEDS: trazodone 100 mg Tablet PO (21:16)
[2023-12-06] MEDS: ketorolac 30 mg/mL INJ IVP (03:20)
[2023-12-06] MEDS: dextrose 5%-lactated ringers 1,000 ML 125 ML IV (03:20)
[2023-12-06 03:36] VITALS: BP 125/79; PULSE 81; RESP 16; TEMP 36.6; TEMP 36.7; O2SAT 98
[2023-12-06 05:51] LABS: Hematocrit 29.9 % (36-47); Mean Corpuscular HGB Conc 30.4 g/dL (30-55); Mean Corpuscular Hemoglobin 23.6 pg (27-33); Mean Corpuscular Volume 77.7 fl (85-98); Mean Platelet Volume 11.3 fL (7.4-10.4); Platelet Count 301 10^3/cmm (157-399); Red Blood Count 3.85 10^6/uL (3.85-5.65); Red Cell Distribution Width 14.5 % (12.1-15.1); White Blood Count 10.99 10^3/uL (3.29-11.43)
[2023-12-06] MEDS: ibuprofen 800 mg tablet PO (08:51)
[2023-12-06] MEDS: docusate sodium 100 mg Capsule PO (08:52)
[2023-12-06] MEDS: HYDROcodone-acetaminophen 5-325 mg Tablet PO (08:52)
[2023-12-06] MEDS: pantoprazole DR 40 mg Tablet PO (08:52)
[2023-12-06 10:00] VITALS: BP 128/75; PULSE 80; RESP 16; TEMP 36.7; O2SAT 98
[2023-12-06 11:00] VITALS: BP 128/75; PULSE 80; RESP 16; TEMP 36.7; O2SAT 98
--- NOTE | 2023-12-06 14:02 | PM.OBGYPN ---
INFORMATION TECHNOLOGY DATA ANALYST Subjective Subjective: Interval history: c/o mild abdominal pain, relieved with pain medications eating, voiding, ambulating well no bleeding / discharge Vitals/I&O/Wt Last Vital Signs Temp 98.1 F 12/06/23 11:00 Pulse 80 12/06/23 11:00 Resp 16 12/06/23 11:00 BP 128/75 12/06/23 11:00 Pulse Ox 98 12/06/23 11:00 O2 Del Method Room Air 12/06/23 10:00 O2 Flow Rate 6 12/05/23 09:08 12/05/23 12/06/23 12/06/23 22:59 06:59 14:59 Intake Total 1000 / 2950 1197.917 / 4147.917 Output Total 400 / 1075 2000 / 3075 Balance 600 / 1875 -802.083 / 1072.917 Weight last 48 hrs Weight 150 lb Physical Exam Narrative: Comfortable, in no distress Awake, alert Afebrile, VS normal Lungs: clear Cor: RRR Abd: soft, nondistended, nontender Ext: normal Urinary Catheter Management: Cota: Cath Placed During This Visit: yes, but has since been removed by the nurse Reason for Continuing Indwelling Catheter: Decision to DC Catheter Urinary Catheter Date of Insertion: 12/05/23 Urinary Catheter Time of Insertion: 07:28 Date Urinary Catheter Removed: 12/06/23 Time Urinary Catheter Discontinued: 05:20 Data 12/06/23 05:20 12/05/23 06:10 A&P Assessment and plan (1) S/P hysterectomy: s/p laparoscopic-assisted vaginal hysterectomy POD #1 Doing well Plan discharge to home Call / return if fever, chills, abdominal pain, bleeding f/u in one week Attestations Medical Necessity Statement*: patient s/p hysterectomy, plan discharge to home today Coding Level of Care Code Acute Code for Chg Fwd Diagnoses S/P hysterectomy Z90.710 Time Spent (min) 20
--- NOTE | 2023-12-06 14:06 | PM.OBGYDC ---
Discharge Providers MICROCOMPUTER TECHNICIAN Date of Admission: 12/05/23 09:42 Date of Discharge: 12/06/23 Attending Provider at Admission: Fabian Ledezma MD Attending Provider at Discharge: Fabian Ledezma MD Consults: none Primary MICROCOMPUTER TECHNICIAN: Fabian Ledezma MD Primary Care Provider: Alexandra Norris DO Diagnoses at Discharge Discharge Diagnosis (1) S/P hysterectomy: Details from hospital stay: patient underwent laparoscopic-assisted vaginal hysterectomy did well postop with no complications patient was discharged to home on POD #1 Status: Acute Reason for Visit Reason for Visit: N93.9 Hospital Course Hospital Course patient underwent laparoscopic-assisted vaginal hysterectomy did well postop with no complications was afebrile was able to eat, void, and ambulate without any difficulties patient was discharged to home on POD #1 Physical Exam Narrative: Comfortable, in no distress Awake, alert Afebrile, VS normal Lungs: clear Cor: RRR Abd: soft, nondistended, nontender Ext: normal Urinary Catheter Management: Cota: Cath Placed During This Visit: yes, but has since been removed by the nurse Reason for Continuing Indwelling Catheter: Decision to DC Catheter Urinary Catheter Date of Insertion: 12/05/23 Urinary Catheter Time of Insertion: 07:28 Date Urinary Catheter Removed: 12/06/23 Time Urinary Catheter Discontinued: 05:20 History History History 3 Term 3 0 Miscarriages/Ectopic 0 Living Children 3 Discharge Data Studies Completed and Pending Pending at discharge Category Date Time Status Pathology: Surgical [PTH] Routine Pth 12/05/23 09:10 Received Laboratory Results WBC 10.99 10^3/uL (3.29-11.43) 12/06/23 05:20 RBC 3.85 10^6/uL (3.85-5.65) 12/06/23 05:20 Hgb 9.10 g/dL (11.27-16.99) L 12/06/23 05:20 Hct 29.9 % (36-47) L 12/06/23 05:20 MCV 77.7 fl (85-98) L 12/06/23 05:20 MCH 23.6 pg (27-33) L 12/06/23 05:20 MCHC 30.4 g/dL (30-55) 12/06/23 05:20 RDW 14.5 % (12.1-15.1) 12/06/23 05:20 Plt Count 301 10^3/cmm (157-399) 12/06/23 05:20 MPV 11.3 fL (7.4-10.4) H 12/06/23 05:20 Sodium 138 mmol/L (136-145) 12/05/23 06:10 Potassium 4.3 mmol/L (3.5-5.1) 12/05/23 06:10 Chloride 104 mmol/L (98-107) 12/05/23 06:10 Carbon Dioxide 23 mmol/L (22-29) 12/05/23 06:10 Anion Gap 15.3 (5-19) 12/05/23 06:10 BUN 15 mg/dL (6-20) 12/05/23 06:10 Creatinine 0.7 mg/dL (0.5-0.9) 12/05/23 06:10 GFR Calculation 90.1 mL/min (90-130) 12/05/23 06:10 Glucose 118 mg/dL (65-115) H 12/05/23 06:10 Calculated Osmolality 288 mOsm/kg (285-295) 12/05/23 06:10 Calcium 8.7 mg/dL (8.5-10.5) 12/05/23 06:10 Urine HCG, Qual Negative (Negative) 12/05/23 05:46 Blood Type O Negative 12/05/23 06:10 Rho(D) Type Negative 12/05/23 06:10 Antibody Screen Negative 12/05/23 06:10 Procedures Performed laparoscopic-assisted vaginal hysterectomy Vitals Last Vital Signs Temp 98.1 F 12/06/23 11:00 Pulse 80 12/06/23 11:00 Resp 16 12/06/23 11:00 BP 128/75 12/06/23 11:00 Pulse Ox 98 12/06/23 11:00 O2 Del Method Room Air 12/06/23 10:00 O2 Flow Rate 6 12/05/23 09:08 Results Labs OB ([facility]): Blood Type O Negative 12/05/23 Antibody Screen Negative 12/05/23 Hct 29.9 % (36-47) L 12/06/23 Hgb 9.10 g/dL (11.27-16.99) L 12/06/23 Rho(D) Type Negative 12/05/23 Plt Count 301 10^3/cmm (157-399) 12/06/23 TSH 1.41 uIU/mL (0.27-4.20) 04/26/21 Hemoglobin A1c 6.0 % (4.0-6.0) 06/21/22 HCG, Qual Negative (Negative) 06/17/23 Micro Urine Specimen 06/17/23 Discharge Plan Discharge Patient Disposition: Home Condition: Stable Prescriptions: New Percocet 10-325 mg tablet 1 tab PO BID PRN (Reason: pain) Qty: 30 0RF Continued (DME) CMC Brace See Rx Instructions .Route .MEDSUPPLY Qty: 1 0RF Rx Instructions: As directed trazodone 150 mg tablet 150 mg PO BEDTIME Qty: 90 1RF pantoprazole [Protonix] 40 mg tablet,delayed release (DR/EC) 40 mg PO BEDTIME Qty: 90 1RF atorvastatin 40 mg tablet 40 mg PO BEDTIME Qty: 90 1RF sertraline 50 mg tablet 50 mg PO DAILY Rx Instructions: TAKE ONE TABLET BY MOUTH EVERY DAY Discharge Orders: Discharge Order (Routine); Ordered 12/06/23 Ordered By: Fabian Ledezma Referrals: Fabian Ledezma MD [Physician] - 12/11/23 8:45 am Discharge Diet: Usual diet Discharge Activity: Increase activity as tolerated Patient Instructions: Laparoscopic Hysterectomy (DC), OB Discharge Report, OB Laproscopic Surgery - [facility], OB Food/Drug Interaction Guide, Opioid Safety Discharge Attestations MICROCOMPUTER TECHNICIAN Time Spent in Discharge Care*: less than 30 min Coding Level of Care Code Acute Code for Chg Fwd Diagnoses S/P hysterectomy Z90.710 Time Spent (min) 20
== END 2023-12-06 11:40 | disposition home or self-care (01) ==
LOC: OBGYN 09:43
PROVIDERS: Anesthesiology; Admitting Provider Obstetrics & Gynecology; PCP Family Medicine; Visit Provider Obstetrics & Gynecology
PROC: 0UT9FZZ Resection of Uterus, Via Natural or Artificial Opening With Percutaneous Endoscopic Assistance (ICD-10-PCS; CPT 58550; principal; 2023-12-05 07:00)
DX: N92.0 Excessive and frequent menstruation with regular cycle (principal); N94.6 Dysmenorrhea, unspecified; Z86.16 Personal history of COVID-19; I10 Essential (primary) hypertension; E78.5 Hyperlipidemia, unspecified
CPT/HCPCS: 58550; 36415; 80048; 81025; 84703; 85027; 86850; 86900; 88307; G0378; J0690; J1100; J1170; J1885; J2250; J2405; J2704; J3010; J3490; J7030; J7121

== ENCOUNTER → 2023-12-20 13:08 | Outpatient (BNVA) | payer BC, SELFPAY | PROVIDERS: PCP Family Medicine; Visit Provider Obstetrics & Gynecology | DX: R30.0 Dysuria (principal) | CPT/HCPCS: 84315; 87086 ==

== ENCOUNTER → 2024-03-09 07:43 | Outpatient (BNVA) | payer BC, SELFPAY | PROVIDERS: PCP Family Medicine; Visit Provider Family Medicine | DX: E78.00 Pure hypercholesterolemia, unspecified (principal) | CPT/HCPCS: 80053; 80061; 83036; 85025 ==

== ENCOUNTER → 2024-07-30 08:40 | Outpatient (BNVA) | payer BC, SELFPAY | PROVIDERS: PCP Family Medicine; Visit Provider Family Medicine | DX: R10.9 Unspecified abdominal pain (principal); E78.00 Pure hypercholesterolemia, unspecified; R60.0 Localized edema | CPT/HCPCS: 80053; 80061; 85025; 85379 ==

== ENCOUNTER 2024-08-14 08:43 | Outpatient (CLI) | payer BC, SELFPAY ==
--- NOTE | 2024-08-14 09:45 | CTR_ITS ---
PROCEDURE INFORMATION: Exam: CT Abdomen And Pelvis With Contrast Exam date and time: 08/14/2024 9:45 AM Age: 48 years old Clinical indication: Abdominal pain; Prior surgery; Surgery date: 6+ months; Surgery type: Patrial hyster; Patient HX: Ruq and rlq pain x 2 months, bloating after eating, nausea; Additional info: Abd and pelvic pain, ruq and rlq TECHNIQUE: Imaging protocol: Computed tomography of the abdomen and pelvis with contrast. Radiation optimization: All CT scans at this facility use at least one of these dose optimization techniques: automated exposure control; mA and/or kV adjustment per patient size (includes targeted exams where dose is matched to clinical indication); or iterative reconstruction. Contrast material: OMNI 350; Contrast volume: 100 ml; Contrast route: INTRAVENOUS (IV); COMPARISON: CT abdomen pelvis w con* [id number] 06/17/2023 4:17 PM RADIATION DOSE METRICS: Total DLP (mGy-cm): 335.09 FINDINGS: Diaphragm: Small sliding hiatal hernia. Liver: Normal. No mass. Gallbladder and biliary ducts: Normal. No calcified stones. No ductal dilation. Pancreas: Normal. No ductal dilation. Spleen: Normal. No splenomegaly. Adrenal glands: Normal. No mass. Kidneys and ureters: Normal. No hydronephrosis. Stomach and bowel: Unremarkable. No obstruction. No mucosal thickening. Appendix: No evidence of appendicitis. Intraperitoneal space: Unremarkable. No free air. No significant fluid collection. Vasculature: Mild atherosclerotic aortic calcifications. No aortic aneurysm. Lymph nodes: Unremarkable. No enlarged lymph nodes. Urinary bladder: The urinary bladder wall remains mildly thickened. Reproductive: Status post hysterectomy. Similar-appearing 2.0 x 1.1 cm cystic focus along the vaginal wall, possibly a Dipti duct cyst. Bones/joints: Unremarkable. No acute fracture. Soft tissues: Unremarkable. CT/CT abdomen pelvis w con* [id number] IMPRESSION: 1. No definite acute findings in the abdomen/pelvis. 2. Interval hysterectomy. Cystic focus along the vaginal wall could represent a Dipti duct cyst. 3. Similar mild urinary bladder wall thickening. Correlate with urinalysis for acute cystitis
[2024-08-14] MEDS: iohexol 350 mg/mL 500 mL Btl (per mL) IV (09:55)
[2024-08-14] MEDS: iohexol 350 mg/mL 500 mL Btl (per mL) PO (09:56)
== END 2024-08-14 08:44 | disposition home or self-care (01) ==
LOC: RAD 08:44
PROVIDERS: PCP Family Medicine; Visit Provider Family Medicine
DX: N90.7 Vulvar cyst (principal); R10.9 Unspecified abdominal pain
CPT/HCPCS: 74177

== ENCOUNTER 2025-04-16 09:41 | Outpatient (CLI) | payer BC, SELFPAY ==
--- NOTE | 2025-04-16 10:00 | MM_ITS ---
WS: [id number] BILATERAL SCREENING DIGITAL TOMOSYNTHESIS MAMMOGRAM WITH CAD HISTORY: screening COMPARISON: 01/01/2023, 01/02/2022, 11/15/2021 Bilateral CC and MLO views with tomosynthesis and synthetic mammography submitted. Computer aided detection analyzed. Breast composition: The breasts are extremely dense, which lowers the sensitivity of mammography. No suspicious masses, microcalcifications or architectural distortion. Stable calcifications in asymmetric fibroglandular tissue towards the LEFT axillary tail. No suspicious grouping of calcifications or mass. MM/MM [facility] tomosynthesis [id number] IMPRESSION: BI-RADS: 2 - Benign FOLLOW UP: 1 Year Follow-up
== END 2025-04-16 09:42 | disposition home or self-care (01) ==
PROVIDERS: PCP Family Medicine; Visit Provider Family Medicine
DX: Z12.31 Encounter for screening mammogram for malignant neoplasm of breast (principal); Z00.00 Encounter for general adult medical examination without abnormal findings; R92.322 Mammographic fibroglandular density, left breast
CPT/HCPCS: 77063; 77067

== ENCOUNTER 2025-04-20 05:00 | Outpatient (RCR) | payer BC, SELFPAY | END 2025-05-20 23:59 | disposition home or self-care (01) | LOC: SPT 05:00 | PROVIDERS: Visit Provider Orthopaedic Surgery | DX: M54.50 Low back pain, unspecified (principal); M54.2 Cervicalgia; G89.29 Other chronic pain | CPT/HCPCS: 97161 ==

== ENCOUNTER → 2025-04-26 11:11 | Outpatient (BNVA) | payer BC, SELFPAY | PROVIDERS: PCP Family Medicine; Visit Provider Emergency Medicine | DX: R39.9 Unspecified symptoms and signs involving the genitourinary system (principal) | CPT/HCPCS: 81000 ==

== ENCOUNTER → 2025-05-05 15:01 | Outpatient (BNVA) | payer BC, SELFPAY | PROVIDERS: PCP Family Medicine; Visit Provider Student in an Organized Health Care Education/Training Program | DX: M79.604 Pain in right leg (principal); M54.9 Dorsalgia, unspecified; M54.2 Cervicalgia; M54.50 Low back pain, unspecified; G89.29 Other chronic pain; M25.551 Pain in right hip; M79.661 Pain in right lower leg | CPT/HCPCS: 73590 ==

== ENCOUNTER 2025-05-06 12:48 | Outpatient (CLI) | payer BC, SELFPAY ==
--- NOTE | 2025-05-06 13:00 | MR_ITS ---
WS: [id number] MRI CERVICAL SPINE NONCONTRAST HISTORY: neck pain COMPARISON: 02/08/2021 Technique: Multiplanar, multisequence noncontrast imaging of the cervical spine. Normal cervical alignment with no compression fracture or significant disc space narrowing. Signal within the cervical cord is normal. Visualized posterior fossa is unremarkable. Craniocervical junction, C1 and C2 relationship, odontoid process and soft tissues are normal. C2-C3: Normal. C3-C4: Mild disc bulging and facet arthropathy. C4-C5: Mild annular disc bulging and small foraminal osteophytes. No stenosis. C5-C6: Diffuse osteophytic ridging with annular disc bulging and mild facet arthritis. Bilateral disc osteophyte complexes in the foramina. Small central disc protrusion. Mild central and bilateral foraminal stenosis, similar to the prior study. C6-C7: Mild osteophytic ridging slightly asymmetric to the LEFT. Small bilateral foraminal osteophytes and mild facet arthritis. Shallow LEFT paracentral disc protrusion. Mild central and bilateral foraminal stenosis. No progression. C7-T1: Normal. RIGHT thyroid nodule is 9 mm. MR/MR cervical spin wo con* [id number] IMPRESSION: 1. No obvious progression of stenosis or degenerative disc disease since 2020. 2. C5-6: Disc osteophyte complexes resulting in mild central and bilateral for aminal stenosis. 3. Small LEFT paracentral disc protrusion at C6-7 with foraminal osteophytes. Mild central and bilateral foraminal stenosis. Similar to the prior study.
== END 2025-05-06 12:49 | disposition home or self-care (01) ==
LOC: RAD 12:51
PROVIDERS: PCP Family Medicine; Visit Provider Family Medicine
DX: M48.02 Spinal stenosis, cervical region (principal); M25.78 Osteophyte, vertebrae; M50.223 Other cervical disc displacement at C6-C7 level
CPT/HCPCS: 72141

== ENCOUNTER → 2025-05-11 13:55 | Outpatient (BNVA) | payer BC, SELFPAY | PROVIDERS: PCP Family Medicine; Visit Provider Orthopaedic Surgery | DX: M54.9 Dorsalgia, unspecified (principal); M54.2 Cervicalgia | CPT/HCPCS: 72050; 72110 ==

== ENCOUNTER 2025-05-21 05:00 | Outpatient (RCR) | payer BC, SELFPAY | END 2025-06-20 23:59 | disposition home or self-care (01) | LOC: SPT 05:00 | PROVIDERS: PCP Family Medicine; Visit Provider Orthopaedic Surgery | DX: M54.50 Low back pain, unspecified (principal); M62.81 Muscle weakness (generalized); G89.29 Other chronic pain | CPT/HCPCS: 97110 ==

== ENCOUNTER 2025-06-02 13:08 | Outpatient (CLI) | payer BC, SELFPAY ==
--- NOTE | 2025-06-02 13:15 | US_ITS ---
WS: [id number] THYROID ULTRASOUND HISTORY: thyroid nodule COMPARISON: None available. Right lobe: 1.5 cm x 1.7 cm x 3.9 cm (w x ap x l). Volume: 4.8 cm3. Normal sized gland. Isoechoic nodule with hypoechoic border in the mid gland measures 0.9 x 0.8 x 1.2 cm. There is increased vascularity. There are a few cystic areas. No echogenic foci. Left lobe: 1.0 cm x 1.2 cm x 3.1 cm (w x ap x l). Volume: 1.8 cm3. Normal size and echotexture. No significant or dominant nodules are present. Isthmus: 0.1 cm. US/US thyroid [id number] IMPRESSION: 1. TI-RADS 4; moderately suspicious. RIGHT thyroid nodule. Recommend yearly ul trasound follow-up at 1, 2, 3 and 5 years. If this nodule becomes greater than 1.5 cm ultrasound-guided FNA will be recommended.
== END 2025-06-02 13:09 | disposition home or self-care (01) ==
LOC: RAD 13:10
PROVIDERS: PCP Family Medicine; Visit Provider Family Medicine
DX: E04.1 Nontoxic single thyroid nodule (principal)
CPT/HCPCS: 76536

== ENCOUNTER → 2025-09-30 07:38 | Outpatient (BNVA) | payer BC, SELFPAY | PROVIDERS: PCP Family Medicine; Visit Provider Family Medicine | DX: E78.00 Pure hypercholesterolemia, unspecified (principal); E04.1 Nontoxic single thyroid nodule; F41.8 Other specified anxiety disorders; M50.90 Cervical disc disorder, unspecified, unspecified cervical region; M19.90 Unspecified osteoarthritis, unspecified site | CPT/HCPCS: 80053; 80061; 84443; 85025; 86140; 86160; 86162; 86235; 86255; 86376 ==